=== PATIENT | male | born 1965 | race Caucasian/White ===

== ENCOUNTER → 2018-06-30 | Outpatient (CLI) | payer OTHER ==
[~2018-06-30] VITALS: Ht 185.4 cm; Wt 90.7 kg
[~2018-06-30] MED LIST: ASPIR 8181 MG PO; BREO ELLIPTA 11 EACH INH; CENTRUM SILVER1 EAC2 PO; FISH OIL 1,001000 M2 PO; MILK OF MA2400 MG/10 PO; VITAMIN D1000 UNI1 PO
--- NOTE | 2018-07-03 12:07 | PATH ---
[facility] [place] [address] PATHOLOGY RPT PROCEDURE Name: VALDEZKAREN Room #: REG PEPE Mulligan.#: [id number] Admission: 06/30/18 Date of : 63 Discharge: Report #: [id number] Path Case #: [id number] [facility] Accession Number: [id number] . 01 Material submitted: . PART A: DUODENUM R/O CELIAC BIOPSY PART B: ANTRUM R/O H. PYLORI BIOPSY PART C: DISTAL ESOPHAGUS R/O BARRETTS BIOPSY PART D: SPLENIC FLEXURE POLYP X2 PART E: SIGMOID COLON POLYP X3 PART F: RECTAL POLYP . 01 Clinical history: . Pre-OP DX: Iron deficiency anemia, heartburn Post-OP DX: Esophagitis, hiatal hernia . 02 Diagnosis: A. Small bowel mucosa, duodenum, rule out celiac, endoscopic biopsy: - Mild focal active duodenitis. - Negative for villous blunting or increase in intraepithelial lymphocytes. . B. Gastric mucosa, antrum, rule out H. pylori, endoscopic biopsy: - Mild reactive gastropathy. - Negative for intestinal metaplasia or atrophy. - Negative for Helicobacter pylori (properly-controlled immunohistochemical stain performed). . C. Squamous mucosa, distal esophagus, rule out Casanova's, endoscopic biopsy: - Mild active esophagitis with fibrinopurulent material, compatible with focal ulceration (please see comment). - Negative for intestinal metaplasia (Casanova's metaplasia) or dysplasia. . D. Polyp x2, splenic flexure polyp, endoscopic biopsy: - One fragment showing tubular adenoma without high grade dysplasia. - Remainder of fragments showing hyperplastic polyps without dysplasia. . E. Polyp x3, sigmoid colon polyp, endoscopic biopsy: - All fragments showing tubular adenoma without high grade dysplasia. . F. Polyp, rectal polyp, endoscopic biopsy: - Tubular adenoma. - Negative for high grade dysplasia. . (IUV:mml; 07/01/2018) [facility]/07/01/[address] [address] PATHOLOGY RPT PROCEDURE Name: KAREN BARRSO Room #: REG [facility].#: [id number] Admission: 06/30/18 Date of : 63 Discharge: Report #: [id number] Path Case #: [id number] . 02 Comment: GMS fungal special stain is performed on the "distal esophagus" biopsy tissue (C1) and it shows no definite fungal elements present. . (IUV:mml; 07/01/2018) . 02 Electronically signed: . Lizbeth Davis MD, Pathologist NPI- [id number] . 01 Gross description: . A. Received in formalin labeled "Valdez, Karen, duodenum-rule out celiac," is a single segment of [place] soft tissue measuring 0.5 cm in maximum dimension. The specimen is submitted entirely in cassette A1. . B. Received in formalin labeled "Valdez, Karen, antrum, rule out H. pylori," are 2 segments of [place] soft tissue measuring 0.9 x 0.2 x 0.2 cm in aggregate dimensions and ranging from 0.3 to 0.6 cm in maximum dimension. The specimen is submitted entirely in cassette B1. . C. Received in formalin labeled "Valdez, Karen, distal esophagus biopsy, rule out Casanova's," are multiple segments of [place] soft tissue measuring less than 0.1 x 0.0 0.1 cm in aggregate dimensions. The specimen is filtered and entirely submitted in cassette C1. Due to the minute nature of the specimen, it may not survive survive processing . D. Received in formalin labeled "Valdez, Karen, splenic flexure polyp x2," are 3 segments of [place]aven[place] soft tissue measuring 1.5 x 0.6 x 0.3 cm in aggregate dimensions and ranging from 0.3 to 0.5 cm in maximum dimension. The specimen is submitted entirely in cassette D1. . E. Received in formalin labeled "Valdez, Karen, sigmoid colon polyp x3," are 4 segments of [place]aven[place] soft tissue measuring 1.8 x 1.1 x 0.5 cm in aggregate dimensions and ranging from 0.4 to 0.8 cm in maximum dimension. The specimen is submitted entirely in cassette E1. . F. Received in formalin labeled "Valdez, Karen, rectal polyp biopsy," are 3 segments of d[place] soft tissue measuring 0.7 x 0.4 x 0.2 cm in aggregate dimensions and ranging from 0.3 to 0.4 cm in maximum dimension. The specimen is submitted entirely in cassette F1. (TSD; 06/30/2018) TOB/TOB . 02 Pathologist provided ICD-10: K29.80, K31.9, K20.9, K22.10, D12.3, D12.5, D12.8 . 02 CPT . [address] [place] [address] PATHOLOGY RPT PROCEDURE Name: KAREN BARROS Room #: REG [facility].#: [id number] Admission: 06/30/18 Date of : 63 Discharge: Report #: [id number] Path Case #: [id number] Specimen Comment: A courtesy copy of this report has been sent to Specimen Comment: [phone], . Specimen Comment: Report sent to / DR WINTERS Specimen Comment: A duplicate report has been generated due to demographic updates. Performed at: [address] [facility] [address], [place], [place] [id number] MD Sean Flood MD Phone: [phone] Performed at: [address] [facility] [address] [id number] MD Lizbeth Davis MD Phone: [phone]
== END | disposition home or self-care (01) ==
LOC: GI 10:13
DX: D12.3 Benign neoplasm of transverse colon (principal); D12.5 Benign neoplasm of sigmoid colon; D12.8 Benign neoplasm of rectum; D50.9 Iron deficiency anemia, unspecified; K29.80 Duodenitis without bleeding; K21.0 Gastro-esophageal reflux disease with esophagitis; K31.89 Other diseases of stomach and duodenum; K57.30 Diverticulosis of large intestine without perforation or abscess without bleeding; K64.8 Other hemorrhoids; K44.9 Diaphragmatic hernia without obstruction or gangrene; K29.70 Gastritis, unspecified, without bleeding; J45.909 Unspecified asthma, uncomplicated; J44.9 Chronic obstructive pulmonary disease, unspecified; Z87.891 Personal history of nicotine dependence; Z98.890 Other specified postprocedural states; Z79.899 Other long term (current) drug therapy; Z79.82 Long term (current) use of aspirin
CPT/HCPCS: 62110; 62900

== ENCOUNTER → 2018-09-02 | Outpatient (CLI) | payer OTHER ==
[~2018-09-02] VITALS: Ht 182.9 cm; Wt 92.5 kg
[~2018-09-02] MED LIST changes: +PROTONIX40 M1 PO; +VENTOLIN HFA 1818 GM INH
--- NOTE | 2018-09-03 17:06 | PATH ---
[facility] [place] [address] PATHOLOGY RPT PROCEDURE Name: VALDEZKAREN Ruiz Room #: REG PEPE Ese.#: [id number] ������������������ Admission: 09/02/18 ������������������ Date of : 63 Discharge: Report #: [id number] Path Case #: [id number] [facility] Accession Number: [id number] . 01 Material submitted: . PART A: duodenum - DUODENUM R/O CELIAC BIOPSY PART B: stomach - ANTRUM BIOPSY R/O H PYLORI PART C: esophagus - DISTAL ESOPHAGUS R/O BARRETTS. Modifiers: distal . 01 Clinical history: . Pre-OP DX: Severe erosive esophagitis follow-up, nausea, bloating Post-OP DX: Hiatal hernia, possible Casanova's . 02 Diagnosis: A. Small bowel, duodenum rule out celiac, endoscopic biopsy: - No diagnostic abnormalities. - Negative for villous blunting or increase in intraepithelial lymphocytes. . B. Gastric mucosa, antrum rule out H. pylori, endoscopic biopsy: - Mild reactive gastropathy. - Negative for intestinal metaplasia or atrophy. - Negative for Helicobacter pylori (properly controlled immunohistochemical stain performed). . C. Gastroesophageal mucosa, distal esophagus, endoscopic biopsy: - Gastric cardia-type mucosa with marked acute inflammation and focal early goblet cell change. - No definite intestinal metaplasia present. - Squamous mucosa with mild esophagitis and features compatible with reflux esophagitis. (IUV:pit 09/03/2018) QTP/09/03/2018 . 02 Electronically signed: . Lizbeth Davis MD, Pathologist NPI- [id number] . 01 Gross description: . A. Received in formalin labeled "Karen Kellogg, duodenum, rule out celiac biopsy," are 3 segments of [place] soft tissue measuring 0.8 x 0.7 x 0.2 cm in aggregate dimensions and ranging from 0.3 to 0.4 cm in maximum dimension. The specimen is submitted entirely in cassette A1. . B. Received in formalin labeled "Karen Kellogg, antrum biopsy, rule out H. pylori," are 2 segments of daven[place] soft tissue measuring 0.9 x 0.2 x 0.2 cm in aggregate dimensions and ranging from 0.4 to 0.5 cm in maximum [address] [address] PATHOLOGY RPT PROCEDURE Name: KAREN KELLOGG Room #: REG [facility]#: [id number] ������������������ Admission: 09/02/18 ������������������ Date of : 63 Discharge: Report #: [id number] Path Case #: [id number] dimension. The specimen is submitted entirely in cassette B1. . C. Received in formalin labeled "Valdez, Karen, distal esophagus, rule out Casanova's," are 2 segments of [place] soft tissue measuring 0.7 x 0.2 x 0.1 cm in aggregate dimensions and ranging from 0.3 to 0.4 cm in maximum dimension. The specimen is submitted entirely in cassette C1. (TSD; 09/02/2018) TOB/TOB . 02 Pathologist provided ICD-10: K31.9, K29.00, K20.9, K21.0 . 02 CPT . 213973, [id number], [id number], [id number] Specimen Comment: A courtesy copy of this report has been sent to Specimen Comment: [phone], . Specimen Comment: Report sent to / DR WINTERS Performed at: [address], [place] [id number] MD Sean Flood MD Phone: [phone] Performed at: [address] [id number] MD Lizbeth Davis MD Phone: [phone]
== END | disposition home or self-care (01) ==
LOC: GI 07:23
DX: K31.9 Disease of stomach and duodenum, unspecified (principal); K21.0 Gastro-esophageal reflux disease with esophagitis; K29.00 Acute gastritis without bleeding; K44.9 Diaphragmatic hernia without obstruction or gangrene; J43.9 Emphysema, unspecified; K21.9 Gastro-esophageal reflux disease without esophagitis; Z98.890 Other specified postprocedural states; Z79.899 Other long term (current) drug therapy; Z87.891 Personal history of nicotine dependence; Z79.82 Long term (current) use of aspirin
CPT/HCPCS: 62110; 62900